=== PATIENT | female | born 2000 | race African-American/Black ===

== ENCOUNTER 2024-05-01 06:41 | Emergency (ER) | payer OTHER ==
[~2024-05-01] VITALS: Ht 160 cm; Wt 69.0 kg
[2024-05-01] MEDS ORDERED: MULTTAB20 PO (07:14)
[2024-05-01 08:46] VITALS: BP 127/78; TEMP 97.5; O2SAT 99
[2024-05-01] MEDS ORDERED: CEPH500C PO (09:20)
== END 2024-05-01 09:35 | disposition home or self-care (01) ==
LOC: M ED 06:41
DX: O26.893 Other specified pregnancy related conditions, third trimester (principal); M94.0 Chondrocostal junction syndrome [Tietze]; Z3A.37 37 weeks gestation of pregnancy